=== PATIENT | male | born 2000 | race Caucasian/White ===

== ENCOUNTER 2022-08-29 15:15 | Inpatient (IN) | payer OTHER, SELFPAY ==
[2022-08-29] VITALS (13 sets, daily range): BP systolic 92–111; BP diastolic 46–68; PULSE 110–130; RESP 20–30; TEMP 36.7–36.8; O2SAT 81–100; BMI 31.1; BMI 31.6
--- NOTE | 2022-08-29 15:14 | ECG_ITS ---
APPROVED REPORT Exam: Resting ECG HR:110 bpm ECG Measurements Heart Rate 110 AXES OH 168 P 29 QRSd 86 QRS 31 QT 303 T 38 QTc 368 Conclusion SINUS TACHYCARDIA POSSIBLE LEFT ATRIAL ENLARGEMENT [-0.1mV P-WAVE IN V1/V2] NONSPECIFIC T-WAVE ABNORMALITY ABNORMAL RHYTHM ECG UNCONFIRMED REPORT Electronically signed by : Castro Mooney MD 08/29/2022 17:26:29
--- NOTE | 2022-08-29 15:20 | PC.NURSE ---
pt noted to be 81% oxygen sat on room air. pt placed on 2L NC and titrated up to 5L NC and only got as high as 85% O2. pt placed on non-rebreather at this time.
--- NOTE | 2022-08-29 15:23 | XR_ITS ---
FINAL REPORT TECHNIQUE: Single view chest CLINICAL HISTORY: overdose, vomitus in airway FINDINGS: A single view of the chest was obtained. The heart and mediastinum are within normal limits. The lungs are clear. There is no pneumothorax. Osseous structures are unremarkable. IMPRESSION: No acute cardiopulmonary process. Reviewed, Interpreted and Dictated by Ranulfo Laboy MD Transcribed by Hannah Berg Authenticated and [facility]
--- NOTE | 2022-08-29 15:34 | HMH.EDGENADL ---
Discharge Plan Disposition Patient Disposition: Admitted as Observation Condition: Fair Clinical Impressions Clinical Impression: Accidental fentanyl overdose, Hypoxia, Respiratory arrest, MARTA (acute kidney injury), Acute hyperglycemia, COVID-19 virus infection Discharge ED Provider: Faustino Wilder General Adult HPI General Chief complaint: Overdose Stated complaint: Overdose Time Seen by Provider: 08/29/22 15:34 Mode of Arrival: EMS Source of Information: Patient Limitations: No Limitations Description of Symptoms (Recalled from ER Triage Doc. by RN): pt to ed via ems c/o overdose. pt states he snorted fentanyl. per ems family states they initiated cpr at home. ems states they administered 4mg of narcan in route. pt is a& on on arrival to ed. pt is noted to have emesis on face and has a productive cough. pt c/o abd pain on arrival. History of Present Illness HPI narrative: The patient is brought in by ambulance. He states I guess I overdosed . States that he was using fentanyl, snorting crushed up pills. Denies using any other street drugs along with it. No intravenous drug use. Denies taking any pills orally or drinking any alcohol. States that he began using fentanyl last November. He did go through a rehab program and says that he was clean for 90 days but then relapsed. Denies suicidal intent, states I was trying to get high . He required multiple doses of Narcan in the field and CPR was also performed. He denies chest pain. He is having some trouble breathing requiring supplemental oxygen since he was resuscitated. He reportedly vomited during the episode and it was suspected that he aspirated. States that he is on medications for depression. Denies any other medical conditions. Related Data Allergies Allergy/AdvReac Type Severity Reaction Status Date / Time No Known Allergies Allergy Verified 08/29/22 15:20 [facility] Disclaimer: The information contained in this section may have been updated after the patient was seen, as this information can be updated by other users. Social History Smoking Status: Never smoker ROS Obtained: Yes Systems reviewed as appropriate & no additional complaints except as documented Constitutional Constitutional: Denies fever(s), Denies headache(s) and Denies weakness ENT Ears, Nose, Mouth, and Throat: Denies headache(s), Denies nasal discharge and Denies sore throat Cardiovascular Cardiovascular: Denies chest pain Respiratory Respiratory: Reports shortness of breath and Denies cough Gastrointestinal Gastrointestingal: Reports vomiting; Denies abdominal pain, constipation or diarrhea Genitourinary Male Genitourinary: Denies difficulty urinating and Denies flank pain Musculoskeletal Musculoskeletal: Denies numbness Neurologic Neurologic: Denies headache(s), Denies numbness and Denies weakness Physical Exam General General appearance: alert and in no apparent distress Comment: He is on nonrebreather mask with a pulse ox of 97%. Breathing easily. Head Head exam: atraumatic, normocephalic and other Eye Eye exam: Present normal appearance and EOMI ENT ENT exam: Present mucous membranes moist and other (Vomitus on face) Neck Neck exam: Present normal inspection and trachea midline Chest Chest inspection: Present normal inspection, symmetric chest wall rise and tenderness (Minimal mid to lower sternal tenderness. No crepitus. No edema or ecchymosis.) Respiratory Respiratory exam: Present normal lung sounds bilaterally; Absent respiratory distress Cardiovascular Cardiovascular exam: Present regular rate, normal rhythm and normal heart sounds Abdominal Exam Abdominal exam: Present soft and normal bowel sounds; Absent distention, tenderness, guarding, rebound or rigidity Extremities Exam Extremities exam: Present normal inspection Neurological Exam Neurological exam: Present alert and oriented X3 Psychiatric Psychiatric exam: Present normal affect and normal mood Skin S
[2022-08-29 15:45] LABS: Basophils # 0.1 K/mm3 (0-0.2); Basophils % 0.7 % (0.1-2.0); Eosinophils # 0.1 K/mm3 (0.0-0.4); Eosinophils % 1.2 % (0.1-12.0); Hematocrit 50.1 % (42.0-52.0); Hemoglobin 16.3 g/dL (14.1-18.0); Lymphocytes # 1.3 K/mm3 (0.7-4.5); Lymphocytes % 15.8 % (10-50); Mean Corpuscular HGB Conc 32.5 g/dL (31.8-35.4); Mean Corpuscular Hemoglobin 29.2 pg (27.0-31.2); Mean Corpuscular Volume 90.1 fl (80-94); Monocytes # 0.1 K/mm3 (0.1-1.0); Monocytes % 1.6 % (1.7-9.3); Neutrophils # 6.6 K/mm3 (1.8-7.8); Neutrophils % 80.7 % (37.0-80.0); Platelet Count 251 K/mm3 (142-424); Red Blood Count 5.56 M/mm3 (4.60-6.20); Red Cell Distribution Width 13.4 % (11.5-17.5); White Blood Count 8.2 K/mm3 (4.5-13.0)
--- NOTE | 2022-08-29 15:55 | PC.NURSE ---
respiratory at bedside for ABG
[2022-08-29 15:56] LABS: Alanine Aminotransferase 36 U/L (12-78); Albumin Level 4.7 g/dl (3.5-5.0); Albumin/Globulin Ratio 1.6 (1.1-1.8); Alkaline Phosphatase 58 U/L (38-126); Anion Gap 17.8 mEq/L (5-15); Aspartate Amino Transferase 49 U/L (17-59); Bilirubin,Total 0.6 mg/dl (0.2-1.3); Blood Urea Nitrogen 15 mg/dl (9-20); Calcium 8.4 mg/dl (8.4-10.2); Carbon Dioxide 26 mmol/L (22.0-30.0); Chloride 100 mmol/L (98-107); Creatinine Clearance Estimated 116 mL/min (50-200); Estimated Glomerular Filt Rate 60 ml/min (>60); GFR (African American) 72 ML/MIN (>60); Glucose 214 mg/dl (74-100); Potassium 4.8 mmoL/L (3.5-5.1); Sodium 139 mmol/L (136-145); Total Protein,Serum 7.7 g/dl (6.3-8.2)
[2022-08-29 15:59] LABS: Acetaminophen < 10 ug/ml (10-30); Ethyl Alcohol < 10 mg/dl (0-10); Salicylate < 1.0 mg/dL (2.0-20.0)
[2022-08-29 16:04] LABS: ABG Base Excess -1.9 mmol/L (-2.4-2.3); ABG HCO3 23.9 mmhg (22.0-26.0); ABG Oxygen Saturation 90 % (90-100); ABG PH 7.33 mmol/L (7.35-7.45); ABG PO2 60.1 mmhg (80-100); ABG TCO2 25.3 mmhg (23-27)
[2022-08-29 16:06] LABS: Allen's Test Acceptable; Oxygen NRB %; Source Right Radial
--- NOTE | 2022-08-29 16:30 | PC.NURSE ---
myself and CONSUELO Foy spoke with mother and Billy Mercado which is the psychiatrist for pt. Billy states he has been following pt's care and was calling r/t mothers inquiry for outpatient rehab care. informed both parties that pt was being admitted and would pass along contact information for outpatient follow up and plan. mother, pt and billy all agreeable to plan. mother states she is meeting with billy tomorrow and will compile an outpatient plan. Billy Mercado- [phone] Dipti (mother)- [phone]
[2022-08-29 16:50] LABS: Influenza A, PCR Not Detected (NotDetected); Influenza B, PCR Not Detected (NotDetected)
[2022-08-29 17:17] LABS: Lactic Acid 1.5 mmol/L (0.7-2.1)
[2022-08-29 17:37] LABS: Coronavirus 19, PCR Detected (NotDetected)
--- NOTE | 2022-08-29 18:52 | PC.NURSE ---
report given to vaughn schneider rn
--- NOTE | 2022-08-29 19:12 | PC.NURSE ---
Pt arrived to floor via wheelchair @ 1905.
--- NOTE | 2022-08-29 19:20 | CT_ITS ---
PROCEDURE INFORMATION: Exam: CT Chest Without Contrast; Diagnostic Exam date and time: 08/29/2022 8:14 PM Age: 21 years old Clinical indication: Other: Hypoxia, possible aspiration after vomiting. ; Additional info: Hypoxia, concern for aspiration TECHNIQUE: Imaging protocol: Diagnostic computed tomography of the chest without contrast. Radiation optimization: All CT scans at this facility use at least one of these dose optimization techniques: automated exposure control; mA and/or kV adjustment per patient size (includes targeted exams where dose is matched to clinical indication); or iterative reconstruction. Other protocol: This patient has received 0 known CTs and 0 known cardiac nuclear medicine studies in the 12 months prior to the current study. COMPARISON: CR XR CHEST PORTABLE 08/29/2022 3:47 PM FINDINGS: Lungs: Scattered pulmonary consolidations most likely represent multifocal pneumonia. Scattered pulmonary of opacities may represent endobronchial spread of infection. Pleural spaces: Unremarkable. No pneumothorax. No pleural effusion. Heart: No coronary arterial calcifications. No cardiomegaly. No pericardial effusion. Lymph nodes: Unremarkable. No enlarged lymph nodes. Vasculature: Unremarkable. No aortic aneurysm. Liver: Hepatic steatosis. Bones/joints: Unremarkable. No acute fracture. Soft tissues: Unremarkable. Other findings: Stigmata of old granulomatous disease. IMPRESSION: 1. Scattered pulmonary consolidations most likely represent multifocal pneumonia. Scattered pulmonary of opacities may represent endobronchial spread of infection. 2. Hepatic steatosis.
[2022-08-29 20:04] LABS: Hemoglobin A1C 4.5 % (4.0-6.0)
[2022-08-29 20:41] LABS: Amphetamine/Metha Screen,Urine Negative ng/ml (<1000); Barbiturates Screen,Urine Negative ng/ml (<200); Benzodiazepines Screen,Urine Positive ng/ml (<200); Cannabinoid Screen,Urine Negative ng/ml (<50); Cocaine Screen,Urine Positive ng/ml (<300); Opiate Screen,Urine Negative ng/ml (<300); Phencyclidine Screen,Urine Negative ng/ml (<25)
[2022-08-29 21:17] LABS: Methadone Screen,Urine Negative ng/ml (<300)
--- NOTE | 2022-08-29 21:51 | EXP.HP ---
History of Present Illness *Admission Date: 08/29/22 *Reason for visit:: Accidental Drug Overdose, Hypoxia *History of present illness: Mr. Pickett is a 21-year-old male with a past medical history of depression and drug abuse. He presented to [facility] due to accidental drug overdose. He was found unresponsive and EMS was activated. In the field, he required several rounds of Narcan for arousal. In the ER he denied any suicidal ideations and on exam he denies any suicidal ideations. He reports a relapse. CT imaging shows a multi-focal pneumonia and his covid testing was positive. There is concern for Aspiration given his clinical scenario. He has a oxygen requirement of 3.5 liters on admission. The patient is admitted with: Accidental Drug Overdose, Aspiration Pneumonia and Covid Pneumonia. He has been placed on telemetry for monitoring, he has Narcan prn for any futher sedation. He has been placed on antibiotics to cover for Aspiration and cultures have been sent. Due to oxygen requirement he has been placed on Remdesivir and Dexamethasone. Case management has been consulted for information on drug rehabilitation. The plan of care was discussed with the patient in length and detail at bedside. He verbalized understanding and agreement with the plan of care. [facility] Disclaimer: The information contained in this section may have been updated after the patient was seen, as this information can be updated by other users. Medical History (Updated 08/29/22 @ 22:00 by Guzman Balbuena DNP) Depression Drug abuse Social History Smoking Status: Never smoker alcohol intake: current current occupational status: unemployed Travel in the last 8 weeks: Inside the [place] Review of Systems Constitutional Constitutional: Reports system reviewed and no additional complaints, except as documented Eyes Eyes: Reports system reviewed and no additional complaints, except as documented ENT Ears, Nose, Mouth, and Throat: Reports nasal congestion *Cardiovascular Cardiovascular: Reports system reviewed and no additional complaints, except as documented and Reports dyspnea *Respiratory Respiratory: Reports cough and Reports dyspnea *Gastrointestinal Gastrointestinal: Reports system reviewed and no additional complaints, except as documented *Genitourinary Genitourinary: Reports system reviewed and no additional complaints, except as documented *Musculoskeletal Musculoskeletal: Reports system reviewed and no additional complaints, except as documented Integumentary/Breasts Skin/Breast: Reports system reviewed and no additional complaints, except as documented *Neurologic Neurologic: Reports system reviewed and no additional complaints, except as documented Psychiatric Psychiatric: Reports system reviewed and no additional complaints, except as documented Endocrine Endocrine: Reports system reviewed and no additional complaints, except as documented Hematologic/Lymphatic Hematologic/Lymphatic: Reports system reviewed and no additional complaints, except as documented Allergic/Immunologic Allergic/Immunologic: Reports system reviewed and no additional complaints, except as documented Meds Home Medications and Allergies New Prescriptions to Start Prescriptions: Allergies Allergy/AdvReac Type Severity Reaction Status Date / Time No Known Allergies Allergy Verified 08/29/22 15:20 Exam Data for Last 24 hours Vital signs and Labs for Last 24 Hours: Temp Pulse Resp BP Pulse Ox 98.1 F 123 H 28 H 92/46 L 96 08/29/22 19:17 08/29/22 19:17 08/29/22 19:17 08/29/22 19:17 08/29/22 19:17 Laboratory Results - last 24 hr 08/29/22 15:25: WBC 8.2, RBC 5.56, Hgb 16.3, Hct 50.1, MCV 90.1, MCH 29.2, MCHC 32.5, RDW 13.4, Plt Count 251, MPV 8.0, Neut % (Auto) 80.7 H, Lymph % (Auto) 15.8, [place] % (Auto) 1.6 L, Eos % (Auto) 1.2, Baso % (Auto) 0.7, Neut # (Auto) 6.6, Lymph # (Auto) 1.3, [place] # (Auto)
--- NOTE | 2022-08-29 22:52 | PC.NURSE ---
Pt. doesn't remember all the meds and exact dosages. He uses [facility] in [place], [place] and they are closed at the moment. States he last took his medications three days ago.
[2022-08-30] VITALS (7 sets, daily range): BP systolic 99–146; BP diastolic 52–73; PULSE 80–112; RESP 17–20; TEMP 36.4–37.4; O2SAT 93–98; BMI 32.1
[2022-08-30 07:08] LABS: Chloride 107 mmol/L (98-107); Sodium 138 mmol/L (136-145)
[2022-08-30 07:09] LABS: Potassium 4.5 mmoL/L (3.5-5.1)
[2022-08-30 07:10] LABS: Basophils % 0.1 % (0.1-2.0); Eosinophils % 0.2 % (0.1-12.0); Hematocrit 40.6 % (42.0-52.0); Lymphocytes # 0.8 K/mm3 (0.7-4.5); Lymphocytes % 4.6 % (10-50); Mean Corpuscular HGB Conc 33.9 g/dL (31.8-35.4); Mean Corpuscular Volume 88.7 fl (80-94); Mean Platelet Volume 7.7 fl (7.4-10.4); Monocytes # 0.4 K/mm3 (0.1-1.0); Monocytes % 2.2 % (1.7-9.3); Neutrophils # 15.4 K/mm3 (1.8-7.8); Neutrophils % 92.9 % (37.0-80.0); Platelet Count 213 K/mm3 (142-424); Red Blood Count 4.58 M/mm3 (4.60-6.20); Red Cell Distribution Width 13.2 % (11.5-17.5); White Blood Count 16.6 K/mm3 (4.5-13.0)
[2022-08-30 07:11] LABS: Blood Urea Nitrogen 10 mg/dl (9-20); Creatinine Clearance Estimated 163 mL/min (50-200); Estimated Glomerular Filt Rate 85 ml/min (>60); GFR (African American) 103 ML/MIN (>60)
[2022-08-30 07:12] LABS: Anion Gap 9.5 mEq/L (5-15); Carbon Dioxide 26 mmol/L (22.0-30.0); Glucose 145 mg/dl (74-100)
[2022-08-30 07:43] LABS: Lactate Dehydrogenase 303 U/L (313-618); MANUAL DIFFERENTIAL MANUAL DIFFERENTIAL (MANUAL DIFF)
[2022-08-30 07:47] LABS: Hemoglobin 13.7 g/dL (14.1-18.0)
[2022-08-30 07:52] LABS: D-Dimer 1.03 ug/mL (0.0-0.5)
--- NOTE | 2022-08-30 07:56 | HMH.PHAINT1 ---
Pharmacy Intervention Comments: MEDICATION RECONCILIATION COMPLETED ON PATIENT USING EXTERNAL FILL HISTORY FROM PHARMACY. -MICHEAL GARRETT, CARLOD
[2022-08-30 08:03] LABS: C-Reactive Protein 95.1 mg/L (0-4)
[2022-08-30 08:21] LABS: Lymphocytes % 7 % (10-50); Monocytes % 5 % (2-9); Neutrophils % 87 % (42-76); Total Cells Counted 100
[2022-08-30 08:22] LABS: Platelet Estimate Normal; RBC Morphology Normal
--- NOTE | 2022-08-30 08:25 | EXP.PN ---
Subjective *Date: 08/30/22 *Time: 17:10 Interval history: Date of service August 30, 2022 The patient reports that he is feeling better from his ED presentation. He continues to report occasional dyspnea. Nursing staff report that the patient remains afebrile with stable vital signs and requiring 5 L of oxygen via nasal cannula to maintain appropriate oxygen saturations. We have reviewed and discussed his morning labs. I have personally interpreted his labs as follows: A CBC with a leukocytoses, hemoglobin 13.7 and normal platelet count. His electrolytes are normal his BUN is 10 and creatinine is 1.1. His glucose is stable at 145. His hemoglobin A1c was 4.5%. CRP, D-dimer and LDH were elevated. His chest x-ray identified no acute disease but a follow-up CT of the chest identified multifocal pneumonia. His renal function is improving. His urine drug screen identified cocaine. Exam Data for Last 24 hours Vital signs and Labs for Last 24 Hours: Temp Pulse Resp BP Pulse Ox 98.3 F 105 H 20 111/61 93 L 08/30/22 04:00 08/30/22 04:00 08/30/22 04:00 08/30/22 04:00 08/30/22 04:00 Laboratory Results - last 24 hr 08/29/22 15:25: WBC 8.2, RBC 5.56, Hgb 16.3, Hct 50.1, MCV 90.1, MCH 29.2, MCHC 32.5, RDW 13.4, Plt Count 251, MPV 8.0, Neut % (Auto) 80.7 H, Lymph % (Auto) 15.8, [place] % (Auto) 1.6 L, Eos % (Auto) 1.2, Baso % (Auto) 0.7, Neut # (Auto) 6.6, Lymph # (Auto) 1.3, [place] # (Auto) 0.1, Eos # (Auto) 0.1, Baso # (Auto) 0.1 08/29/22 15:25: Sodium 139, Potassium 4.8, Chloride 100, Carbon Dioxide 26, Anion Gap 17.8 H, BUN 15, Creatinine 1.50 H, Estimated Creat Clear 116, Estimated GFR 60, Est GFR ( Amer) 72, Glucose 214 H, Calcium 8.4, Total Bilirubin 0.6, AST 49, ALT 36, Alkaline Phosphatase 58, Total Protein 7.7, Albumin 4.7, Globulin 3.0, Albumin/Globulin Ratio 1.6 08/29/22 15:25: Salicylates < 1.0 L, Acetaminophen < 10 L 08/29/22 15:25: Plasma/Serum Alcohol < 10 08/29/22 15:25: Hemoglobin A1c 4.5 08/29/22 15:42: Specimen Source Right radial, O2 % Nrb, ABG pH 7.33 L, ABG pCO2 46.0 H, ABG pO2 60.1 L, ABG HCO3 23.9, ABG Total CO2 25.3, ABG O2 Saturation 90, ABG Base Excess -1.9, Sujit Test Acceptable 08/29/22 16:40: SARS-CoV-2 (PCR) Detected A, Influenza A Untype (PCR) Not detected, Influenza Type B (PCR) Not detected 08/29/22 16:51: Lactate 1.5 08/29/22 20:00: Urine Opiates Screen Negative, Urine Methadone Screen Negative, Ur Barbituates Screen Negative, Ur Phencyclidine Scrn Negative, Ur Amphetamines Screen Negative, U Benzodiazepines Scrn Positive H, Urine Cocaine Screen Positive H, U Marijuana (THC) Screen Negative 08/30/22 06:28: WBC 16.6 H D, RBC 4.58 L, Hgb 13.7 L D, Hct 40.6 L, MCV 88.7, MCH 30.0, MCHC 33.9, RDW 13.2, Plt Count 213, MPV 7.7, Neut % (Auto) 92.9 H, Lymph % (Auto) 4.6 L, [place] % (Auto) 2.2, Eos % (Auto) 0.2, Baso % (Auto) 0.1, Neut # (Auto) 15.4 H, Lymph # (Auto) 0.8, [place] # (Auto) 0.4, Eos # (Auto) 0.0, Baso # (Auto) 0.0, Total Counted 100, Neutrophils % (Manual) 87 H, Band Neutrophils % 1.0, Lymphocytes % (Manual) 7 L, Monocytes % (Manual) 5, Platelet Estimate Normal, RBC Morphology Normal 08/30/22 06:28: Sodium 138, Potassium 4.5, Chloride 107, Carbon Dioxide 26, Anion Gap 9.5, BUN 10 D, Creatinine 1.10 D, Estimated Creat Clear 163, Estimated GFR 85, Est GFR ( Amer) 103 D, Glucose 145 H D, Calcium 8.0 L 08/30/22 06:28: Lactate Dehydrogenase 303 L, C-Reactive Protein 95.1 H 08/30/22 06:28: D-Dimer 1.03 H I & O for Last 24 hours: Intake & Output 08/27/22 08/28/22 08/29/22 08/30/22 23:59 23:59 23:59 23:59 Intake Total 1200 / 1200 Output Total 350 / 350 0 / 0 Balance -350 / 0 1200 / 1200 Weight 105.829 kg 107.683 kg Constitutional Constitutional: no acute distress, obese and cooperative *Routine HEENT Exam Head: Present normocephalic Eye: Present EOMI and PERRL ENT: Present mucous membranes moist *Routine Neck Exam Neck: Present supple; Absent lymphadenopathy *Routine Respiratory E
--- NOTE | 2022-08-30 15:52 | CARE MANAGER ---
Addendum entered by Elena Peter RN 09/02/22 07:28: Patient was discharged home due to covid positive and financial restraints. Patient's mother apparently plans to take him to [facility] once he meets requirements for admission ( in regards to no longer in covid isolation). Original Note: Spoke with patient regarding discharge planning. Patient states that he is agreeable for inpatient rehabilitation once discharged. His mother has been working with his therapist and has obtained a bed @ [facility] in [place], which patient is agreeable to. I have spoken with Renetta at [facility] who states that nurse will need to call for bed availability when patient is medically stable for discharge. [facility] will accept the patient 10/02 if bed is available at time of discharge and will provide transport to facility. [facility] phone number is [phone].
[2022-08-31] VITALS (7 sets, daily range): BP systolic 105–152; BP diastolic 55–79; PULSE 70–90; RESP 16–18; TEMP 36.3–36.7; O2SAT 95–99; BMI 32.6
--- NOTE | 2022-08-31 05:54 | PC.NURSE ---
pt awake most of night, vss, no acute distress, lung sounds clear and diminished, 02 sats 95% on room air, when speaking with patient, pt was emotional and stated that he used fentanyl to try and kill himself, pt voiced that mother was only support persona and that he felt she was only seeing the things he was doing wrong and nothing he did was right, dr. chilel was made aware of this,. pt denies any si/sh at this current time.
[2022-08-31 07:31] LABS: Basophils # 0.1 K/mm3 (0-0.2); Basophils % 0.8 % (0.1-2.0); Eosinophils % 0.1 % (0.1-12.0); Hemoglobin 13.6 g/dL (14.1-18.0); Lymphocytes # 1.7 K/mm3 (0.7-4.5); Lymphocytes % 10.7 % (10-50); Mean Corpuscular HGB Conc 34.1 g/dL (31.8-35.4); Mean Corpuscular Hemoglobin 29.5 pg (27.0-31.2); Mean Corpuscular Volume 86.6 fl (80-94); Mean Platelet Volume 8.8 fl (7.4-10.4); Monocytes # 0.5 K/mm3 (0.1-1.0); Monocytes % 3.4 % (1.7-9.3); Neutrophils # 13.1 K/mm3 (1.8-7.8); Platelet Count 226 K/mm3 (142-424); Red Blood Count 4.62 M/mm3 (4.60-6.20); Red Cell Distribution Width 13.1 % (11.5-17.5); White Blood Count 15.4 K/mm3 (4.5-13.0)
[2022-08-31 07:35] LABS: MANUAL DIFFERENTIAL MANUAL DIFFERENTIAL (MANUAL DIFF)
[2022-08-31 07:42] LABS: Alanine Aminotransferase 22 U/L (12-78); Anion Gap 6.8 mEq/L (5-15); Aspartate Amino Transferase 27 U/L (17-59); Blood Urea Nitrogen 9 mg/dl (9-20); Calcium 8.2 mg/dl (8.4-10.2); Carbon Dioxide 25 mmol/L (22.0-30.0); Chloride 111 mmol/L (98-107); Creatinine Clearance Estimated 260 mL/min (50-200); Estimated Glomerular Filt Rate 144 ml/min (>60); GFR (African American) 174 ML/MIN (>60); Glucose 103 mg/dl (74-100); Potassium 3.8 mmoL/L (3.5-5.1); Sodium 139 mmol/L (136-145)
[2022-08-31 07:45] LABS: D-Dimer 0.59 ug/mL (0.0-0.5)
[2022-08-31 07:46] LABS: C-Reactive Protein 88.1 mg/L (0-4)
[2022-08-31 07:51] LABS: Lymphocytes % 15 % (10-50); Monocytes % 6 % (2-9); Neutrophils % 79 % (42-76); Platelet Estimate Normal; RBC Morphology Normal; Total Cells Counted 100
[2022-08-31 07:58] LABS: Procalcitonin 0.658 ng/mL (0.0-2.0)
--- NOTE | 2022-08-31 07:59 | EXP.PN ---
Subjective *Date: 08/31/22 *Time: 07:59 Interval history: Date of service August 31, 2022 The patient reports no acute events overnight. He is tolerating his therapy with no adverse events. 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 He is interested in rehab for his polysubstance abuse. Nursing staff report that he remains afebrile with stable vital signs and saturating appropriately on 3 L of oxygen. His morning labs have been reviewed and discussed. I have personally interpreted his labs as follows: CBC with an improved leukocytoses down to 15.4, stable hemoglobin hematocrit and platelets. His CBC identifies a left shift. Decreased D-dimer and CRP inflammatory markers with normal procalcitonin. His electrolytes are normal and his creatinine has improved to 0.7. His glucose trend remains under 150. His blood cultures are pending. Exam Data for Last 24 hours Vital signs and Labs for Last 24 Hours: Temp Pulse Resp BP Pulse Ox 97.5 F L 81 17 105/56 L 95 08/31/22 04:00 08/31/22 04:00 08/31/22 04:00 08/31/22 04:00 08/31/22 04:00 Laboratory Results - last 24 hr 08/30/22 06:28: Total Counted 100, Neutrophils % (Manual) 87 H, Band Neutrophils % 1.0, Lymphocytes % (Manual) 7 L, Monocytes % (Manual) 5, Platelet Estimate Normal, RBC Morphology Normal 08/30/22 06:28: Procalcitonin 1.10 08/30/22 06:28: Lactate Dehydrogenase 303 L, C-Reactive Protein 95.1 H 08/31/22 07:25: Sodium 139, Potassium 3.8, Chloride 111 H, Carbon Dioxide 25, Anion Gap 6.8, BUN 9, Creatinine 0.70 D, Estimated Creat Clear 260, Estimated GFR 144, Est GFR ( Amer) 174 D, Glucose 103 H, Calcium 8.2 L, AST 27 D, ALT 22 D 08/31/22 07:25: WBC 15.4 H, RBC 4.62, Hgb 13.6 L, Hct 40.0 L, MCV 86.6, MCH 29.5, MCHC 34.1, RDW 13.1, Plt Count 226, MPV 8.8, Neut % (Auto) 85.0 H, Lymph % (Auto) 10.7, [place] % (Auto) 3.4, Eos % (Auto) 0.1, Baso % (Auto) 0.8, Neut # (Auto) 13.1 H, Lymph # (Auto) 1.7, [place] # (Auto) 0.5, Eos # (Auto) 0.0, Baso # (Auto) 0.1, Total Counted 100, Neutrophils % (Manual) 79 H, Lymphocytes % (Manual) 15, Monocytes % (Manual) 6, Platelet Estimate Normal, RBC Morphology Normal 08/31/22 07:25: C-Reactive Protein 88.1 H, Procalcitonin 0.658 08/31/22 07:25: D-Dimer 0.59 H I & O for Last 24 hours: Intake & Output 08/28/22 08/29/22 08/30/22 08/31/22 23:59 23:59 23:59 23:59 Intake Total 3377 / 3377 1907 / 1907 Output Total 350 / 350 0 / 0 Balance -350 / 0 3377 / 3377 1907 / 1907 Weight 105.829 kg 107.683 kg 109.372 kg Microbiology Reports for the Last 24 Hours: Microbiology 08/29/22 02:10 Sputum - Expectorated Sputum Gram Stain - Final Constitutional Constitutional: no acute distress, obese and cooperative *Routine HEENT Exam Head: Present normocephalic Eye: Present EOMI and PERRL ENT: Present mucous membranes moist *Routine Neck Exam Neck: Present supple; Absent lymphadenopathy *Routine Respiratory Exam Respiratory: Present rhonchi, normal respiratory effort and symmetric chest movement *Routine Cardiovascular Exam Cardiovascular: Present RRR *Routine Abdominal Exam Abdominal: Present soft and normoactive bowel sounds; Absent tenderness *Routine Extremities Exam Extremities: Present full ROM, pulses intact and normal capillary refill; Absent cyanosis, clubbing or edema *Routine Skin Exam Skin: Present warm; Absent rash *Routine Neurological Exam Neurological: Present alert, oriented X3, moving all extremities, normal tone, vision grossly intact, hearing grossly intact and normal speech Routine Psychiatric Exam Psychiatric: Present normal affect, normal thought process, cooperative and good insight Assessment and Plan *Assessment and plan (1) Accidental drug overdose: Status: Acute Category: Medical Code(s): T50.901A - Poisoning by unspecified drugs, medicaments and biological substances, accidental (unintentional), initial encounter (2) Aspiration pneumonia:
[2022-08-31 08:40] LABS: Lactate Dehydrogenase 184 U/L (313-618)
--- NOTE | 2022-08-31 09:45 | PC.NURSE ---
Patient was weaned to room air 08/30/22 at 1600. No oxygen requirements needed during the rest of the evening and throughout the night. Patient still saturating 99% on room air 08/31/22 in am.
--- NOTE | 2022-08-31 19:02 | PC.NURSE ---
No acute changes noted. VS stable, patient remained on room air. Lung sounds clear on ascultation. IV antibiotics given
[2022-09-01] VITALS: BP 134/63; PULSE 69; PULSE 80; RESP 18; TEMP 36.5; O2SAT 97
[2022-09-01 04:00] VITALS: BP 119/63; PULSE 69; RESP 18; O2SAT 98; BMI 32.6
--- NOTE | 2022-09-01 05:34 | PC.NURSE ---
no changes from previous assessment, pt resting well this am, o2 sats remain 98% on room air, lung sounds diminished, vss, no acute distress.
--- NOTE | 2022-09-01 06:39 | PC.NURSE ---
pt denies any SI/SH at this time, pt states he is good, pt wants to go home and states he is going regardless if they let him go or not today.
[2022-09-01 07:27] VITALS: BP 137/80; PULSE 74; RESP 18; TEMP 36.5; O2SAT 99
[2022-09-01 07:41] LABS: Influenza A, PCR Not Detected (NotDetected); Influenza B, PCR Not Detected (NotDetected)
[2022-09-01 07:46] LABS: Alanine Aminotransferase 27 U/L (12-78); Anion Gap 5.4 mEq/L (5-15); Aspartate Amino Transferase 29 U/L (17-59); Blood Urea Nitrogen 13 mg/dl (9-20); Calcium 8.4 mg/dl (8.4-10.2); Carbon Dioxide 27 mmol/L (22.0-30.0); Chloride 108 mmol/L (98-107); Creatinine Clearance Estimated 228 mL/min (50-200); Estimated Glomerular Filt Rate 123 ml/min (>60); GFR (African American) 149 ML/MIN (>60); Glucose 86 mg/dl (74-100); Potassium 3.4 mmoL/L (3.5-5.1); Sodium 137 mmol/L (136-145)
[2022-09-01 07:58] LABS: Basophils # 0.1 K/mm3 (0-0.2); Basophils % 0.6 % (0.1-2.0); Eosinophils % 0.1 % (0.1-12.0); Hematocrit 42.9 % (42.0-52.0); Hemoglobin 14.3 g/dL (14.1-18.0); Lymphocytes # 2.7 K/mm3 (0.7-4.5); Lymphocytes % 20.1 % (10-50); Mean Corpuscular HGB Conc 33.4 g/dL (31.8-35.4); Mean Corpuscular Hemoglobin 28.7 pg (27.0-31.2); Mean Platelet Volume 7.9 fl (7.4-10.4); Monocytes # 0.5 K/mm3 (0.1-1.0); Monocytes % 3.7 % (1.7-9.3); Neutrophils # 10.2 K/mm3 (1.8-7.8); Neutrophils % 75.5 % (37.0-80.0); Platelet Count 268 K/mm3 (142-424); Red Blood Count 4.99 M/mm3 (4.60-6.20); Red Cell Distribution Width 13.2 % (11.5-17.5); White Blood Count 13.4 K/mm3 (4.5-13.0)
[2022-09-01 08:00] VITALS: O2SAT 98
[2022-09-01 08:02] LABS: Coronavirus 19, PCR Detected (NotDetected)
--- NOTE | 2022-09-01 08:31 | EXP.PN ---
Subjective *Date: 09/01/22 *Time: 08:31 Interval history: Date of service September 01, 2022 The patient reports no acute events overnight. He denies dyspnea. I spoke with his behavioral health specialist at planned rehab facility for discharge. They have requested and institution to institution transfer based on his behavioral risk. They request a COVID evaluation to assess status. They are recommending to receive the patient 5 days postpositive COVID positive status. Nursing staff report that he remains afebrile with stable vital signs and now saturating appropriately on room air. We have reviewed and discussed his morning labs. I have personally interpreted his labs as follows: A CBC with an improved white blood cell count of 13.4, stable hemoglobin hematocrit and platelet count. His electrolytes identify diminished potassium with normal BUN and creatinine. His mother is supportive of plan of care and has been present to visit with the patient. Exam Data for Last 24 hours Vital signs and Labs for Last 24 Hours: Temp Pulse Resp BP Pulse Ox 97.7 F 74 18 137/80 98 09/01/22 07:27 09/01/22 07:27 09/01/22 07:27 09/01/22 07:27 09/01/22 08:00 Laboratory Results - last 24 hr 08/31/22 07:25: Lactate Dehydrogenase 184 L D 09/01/22 06:16: SARS-CoV-2 (PCR) Detected A, Influenza A Untype (PCR) Not detected, Influenza Type B (PCR) Not detected 09/01/22 07:25: Sodium 137, Potassium 3.4 L, Chloride 108 H, Carbon Dioxide 27, Anion Gap 5.4, BUN 13 D, Creatinine 0.80, Estimated Creat Clear 228, Estimated GFR 123, Est GFR ( Amer) 149, Glucose 86, Calcium 8.4, AST 29, ALT 27 09/01/22 07:25: WBC 13.4 H, RBC 4.99, Hgb 14.3, Hct 42.9, MCV 86.0, MCH 28.7, MCHC 33.4, RDW 13.2, Plt Count 268, MPV 7.9, Neut % (Auto) 75.5, Lymph % (Auto) 20.1, [place] % (Auto) 3.7, Eos % (Auto) 0.1, Baso % (Auto) 0.6, Neut # (Auto) 10.2 H, Lymph # (Auto) 2.7, [place] # (Auto) 0.5, Eos # (Auto) 0.0, Baso # (Auto) 0.1 I & O for Last 24 hours: Intake & Output 08/29/22 08/30/22 08/31/22 09/01/22 23:59 23:59 23:59 23:59 Intake Total 3377 / 3377 4278 / 4278 1453 / 1453 Output Total 350 / 350 0 / 0 0 / 0 Balance -350 / 0 3377 / 3377 4278 / 4278 1452 / 1452 Weight 105.829 kg 107.683 kg 109.372 kg 109.486 kg Microbiology Reports for the Last 24 Hours: Microbiology 08/29/22 02:10 Sputum - Expectorated Sputum Gram Stain - Final 08/29/22 02:10 Sputum - Expectorated Sputum Sputum Culture - Preliminary 08/29/22 16:55 Blood Blood Culture - Preliminary NO GROWTH AFTER 48 HOURS 08/29/22 16:55 Blood Blood Culture - Preliminary NO GROWTH AFTER 48 HOURS Constitutional Constitutional: no acute distress, obese and cooperative *Routine HEENT Exam Head: Present normocephalic Eye: Present EOMI and PERRL ENT: Present mucous membranes moist *Routine Neck Exam Neck: Present supple; Absent lymphadenopathy *Routine Respiratory Exam Respiratory: Present rhonchi, normal respiratory effort and symmetric chest movement *Routine Cardiovascular Exam Cardiovascular: Present RRR *Routine Abdominal Exam Abdominal: Present soft and normoactive bowel sounds; Absent tenderness *Routine Extremities Exam Extremities: Present full ROM, pulses intact and normal capillary refill; Absent cyanosis, clubbing or edema *Routine Skin Exam Skin: Present warm; Absent rash *Routine Neurological Exam Neurological: Present alert, oriented X3, moving all extremities, normal tone, vision grossly intact, hearing grossly intact and normal speech Routine Psychiatric Exam Psychiatric: Present normal affect, normal thought process, cooperative and good insight Assessment and Plan *Assessment and plan (1) Accidental drug overdose: Status: Acute Category: Medical Code(s): T50.901A - Poisoning by unspecified drugs, medicaments and biological substances, accidental (unintentional), initial encounter (2) A
[2022-09-01 10:49] VITALS: BP 126/54; PULSE 76; RESP 18; TEMP 36.4; O2SAT 99
--- NOTE | 2022-09-01 11:00 | EXP.DC.SUM ---
General Admission date:: 08/29/22 Discharge date: 09/01/22 HPI HPI HPI: Mr. Pickett is a 21-year-old male with a past medical history of depression and drug abuse. He presented to [facility] due to accidental drug overdose. He was found unresponsive and EMS was activated. In the field, he required several rounds of Narcan for arousal. In the ER he denied any suicidal ideations and on exam he denies any suicidal ideations. He reports a relapse. CT imaging shows a multi-focal pneumonia and his covid testing was positive. There is concern for Aspiration given his clinical scenario. He has a oxygen requirement of 3.5 liters on admission. The patient is admitted with: Accidental Drug Overdose, Aspiration Pneumonia and Covid Pneumonia. He has been placed on telemetry for monitoring, he has Narcan prn for any futher sedation. He has been placed on antibiotics to cover for Aspiration and cultures have been sent. Due to oxygen requirement he has been placed on Remdesivir and Dexamethasone. Case management has been consulted for information on drug rehabilitation. The plan of care was discussed with the patient in length and detail at bedside. He verbalized understanding and agreement with the plan of care. Hospital Course Hospital Course Hospital Course: The patient is admitted to the medical unit with telemetry and pulse oximetry monitoring. Contact and droplet precautions were observed. Blood cultures were acquired and he was started on broad-spectrum IV antibiotic therapy. With his oxygen requirements and positive COVID-19 PCR the patient was started on IV dexamethasone and IV remdesivir. His labs and inflammatory markers were trended. His blood cultures identified no growth to date and his laboratory studies identified a downward trend of his leukocytoses, D-dimer and CRP. The patient identified improvement and no longer required oxygen supplementation to maintain appropriate oxygen saturations. Chest x-ray and CT of the chest were concerning for aspiration pneumonia. No groundglass opacities were identified. Case management assisted with contact for drug rehabilitation. [facility] requested a facility to facility transition of care but they could not accept the patient until 5 days after his positive COVID-19 test. The patient identified improvement in his symptomatology and declined to remain inpatient until transition of care could occur. His mother who visited with him through his hospital course agreed. She reported that she could not afford a hospital stay to meet the rehabs policy requirements. She plans to take her son home with her and assume responsibility [facility] once the facility's policy for COVID-positive patients is satisfied. He will be discharged with a course of antibiotic therapy and we have discussed contact and droplet precautions. He is advised to see his PCP in 1 week. He is counseled and educated on avoiding illicit drug use. I spent 35 minutes in [id number] time with the patient, mother at bedside and nursing staff (Dustin CORDERO) concerning the discharge process. We discussed the admitting diagnoses and hospital course. We discussed identified improvement and the patient's desire to be discharged. We reviewed inpatient studies and imaging. The patient voiced understanding on the importance of follow-up with his primary care provider and addiction rehab. The patient plans to be compliant with the medication regimen prescribed and follow-up appointments. He understands that he can return to the emergency department with any sudden changes or concerns. Exam Data for Last 24 hours Vital signs and Labs for Last 24 Hours: Temp Pulse Resp BP Pulse Ox 97.6 F 76 18 126/54 L 99 09/01/22 10:49 09/01/22 10:49 09/01/22 10:49 09/01/22 10:49 09/01/22 10:49 Laboratory Results - last 24 hr 09/01/22 06:16: SARS-CoV-2 (PCR) Detected A, Influen
--- NOTE | 2022-09-02 13:33 | CARE MANAGER ---
Attempted post-discharge phone interview, no answer. Left a message.
[2022-09-02 22:08] LABS: Body Fluid Culture, Sterile Not indicated. (.); Legionella pneumophila Urinary Negative (Negative); Organism ID Not indicated. (.); Specimen Source Urine (.); Streptococcus pneumoniae Ag Negative (Negative)
--- NOTE | 2022-09-03 13:10 | CARE MANAGER ---
Called and spoke with patient's mother, who stated patient has now entered the rehab facility in [place].
[2022-09-03 23:04] LABS: MRSA DNA PCR NEGATIVE
== END 2022-09-01 11:29 | disposition home or self-care (01) | DRG 917 ==
LOC: ER 18:03 → 2ND 18:29
PROVIDERS: Nurse Practitioner Family; Admitting Provider Family Medicine; Emergency Provider Emergency Medicine; PCP Internal Medicine; Visit Provider Family Medicine
DX: T40.411A Poisoning by fentanyl or fentanyl analogs, accidental (unintentional), initial encounter (principal); J12.82 Pneumonia due to coronavirus disease 2019; J69.0 Pneumonitis due to inhalation of food and vomit; R09.2 Respiratory arrest; U07.1 COVID-19; N17.9 Acute kidney failure, unspecified; R73.9 Hyperglycemia, unspecified; F11.90 Opioid use, unspecified, uncomplicated
CPT/HCPCS: 36415; 71045; 71250; 80048; 80053; 80305; 80329; 82803; 83036; 83605; 83615; 84145; 84450; 84460; 85007; 85025; 85378; 86140; 87040; 87070; 87205; 87641; 87899; 93005; 99285; C9803; J2405; U0003; U0005